=== PATIENT | female | born 1990 | race Caucasian/White ===

== ENCOUNTER 2020-06-11 05:11 | Emergency (ER) | payer OTHER ==
[~2020-06-11] VITALS: Ht 165.1 cm; Wt 72.6 kg
[2020-06-11 05:12] VITALS: BP 94/49
[2020-06-11] MEDS ORDERED: TYLENOL325 M1 PO (05:26)
[2020-06-11] MEDS ORDERED: KEFLEX500 M1 PO (05:26)
[2020-06-11] MEDS ORDERED: NAPROSYN500 MG PO (05:26)
== END 2020-06-11 05:41 | disposition home or self-care (01) ==
LOC: ER 05:11
DX: L03.221 Cellulitis of neck (principal)